=== PATIENT | female | born 1995 | race Hispanic/Latino ===

== ENCOUNTER 2022-06-15 20:41 | Emergency (ER) | payer SELFPAY ==
[2022-06-15 22:15] LABS: SARS-CoV-2 NAA Rapid Test Not Detected (NotDetected)
== END 2022-06-15 22:59 | disposition home or self-care (01) ==
LOC: CSHERS 20:41
DX: O03.9 Complete or unspecified spontaneous abortion without complication (principal); Z20.822 Contact with and (suspected) exposure to COVID-19
CPT/HCPCS: 76856

== ENCOUNTER 2022-06-17 19:02 | Emergency (ER) | payer SELFPAY | END 2022-06-17 22:38 | disposition home or self-care (01) | LOC: CSHERS 19:02 | DX: O03.9 Complete or unspecified spontaneous abortion without complication (principal) | CPT/HCPCS: 36415; 84702; 99284 ==

== ENCOUNTER 2022-12-28 21:43 | Emergency (ER) | payer SELFPAY ==
[2022-12-28 23:11] LABS: #Basophils 0.1 10x3/uL (0.0-0.2); #Eosinphils 0.2 10x3/uL (0.0-0.5); #Monocytes 0.8 10x3/uL (0.0-1.1); #Neutrophils 9.6 10x3/uL (1.5-8.4); %Basophils 0.5 % (0.0-2.0); %Eosinophils 1.4 % (0.0-6.0); %Lymphocytes 20.2 % (18.0-47.0); %Monocytes 5.8 % (0.0-10.0); %Neutrophils 71.6 % (40.0-75.0); Hematocrit 41.8 % (34.9-44.5); Hemoglobin 14.3 g/dL (12.0-15.5); Mean Corpuscular HGB CONC 34.2 g/dL (32.0-36.0); Mean Corpuscular Hemoglobin 30.2 pg (27.0-33.0); Mean Corpuscular Volume 88.2 fl (81.6-98.3); Mean Platelet Volume 9.4 fl (7.4-10.4); Platelet Count 277 10x3/uL (150-450); RBC Distribution Width 12.6 % (11.5-14.5); Red Blood Cell (RBC) Count 4.74 10x6/uL (3.90-5.03); White Blood Cell (WBC) Count 13.4 10x3/uL (3.5-10.5)
[2022-12-28 23:25] LABS: Anion Gap 11 mmol/L (10-20); BUN (Urea Nitrogen) 13 mg/dL (7.0-18.7); Calc. Creatinine Clearance 0 mL/min (70-130); Carbon Dioxide 24 mmol/L (22-29); Chloride 105 mmol/L (98-107); Potassium 3.4 mmol/L (3.5-5.1); Sodium 137 mmol/L (136-145)
[2022-12-28 23:26] LABS: ALT (SGPT) 34 U/L (8-55); AST (SGOT) 28 U/L (5-34); Albumin 4.3 g/dL (3.5-5.0); Alkaline Phosphatase 123 U/L (40-110); Bilirubin, Total 0.3 mg/dL (0.2-1.2); Estimated GFR 104; Globulin 3.4 g/dL (2.4-3.5); Glucose 114 mg/dL (70-105); Protein, Total 7.7 g/dL (6.0-8.3)
[2022-12-28] MEDS ORDERED: Acetaminophen 500 MG TAB ONE (23:39)
[2022-12-28 23:51] LABS: Bilirubin Neg (Negative); Blood, Urine 250 (Negative); Clarity Clear (Clear); Glucose, Urine (Dipstick) Normal (Negative); Ketone, Urine Negative (Negative); Leukocyte Negative (Negative); Nitrite Negative (Negative); Protein, Urine (Dipstick) 30 mg/dl (Neg-Trace); Urobilinogen Normal mg/dL (Less than 2)
[2022-12-29 00:06] LABS: CAUTI Indications for Culture Dysuria,urgency,freq
[2022-12-29 00:07] LABS: Bacteria/HPF Rare-Few HPF (None Seen); Squamous Epithelial 0-3 HPF (0-3); WBC/HPF 0-3 HPF (0-3)
[2022-12-29 00:08] LABS: Urine Culture Reflex No No
[2022-12-30 02:44] LABS: Chlamydia by PCR, Vaginal Swab Not Detected (NotDetected); GC by PCR, Vaginal Swab Not Detected (NotDetected)
== END 2022-12-29 03:10 | disposition home or self-care (01) ==
LOC: CSHERS 21:43
DX: O23.592 Infection of other part of genital tract in pregnancy, second trimester (principal); B96.89 Other specified bacterial agents as the cause of diseases classified elsewhere; Z3A.14 14 weeks gestation of pregnancy
CPT/HCPCS: 36415; 76856; 80053; 81001; 84702; 85025; 86900; 86901; 87480; 87491; 87510; 87591; 87660

== ENCOUNTER 2023-03-28 19:55 | Emergency (ER) | payer SELFPAY ==
[2023-03-28 20:47] LABS: #Eosinphils 0.1 10x3/uL (0.0-0.5); #Monocytes 0.6 10x3/uL (0.0-1.1); %Basophils 0.2 % (0.0-2.0); %Lymphocytes 16.8 % (18.0-47.0); %Neutrophils 75.5 % (40.0-75.0); Hematocrit 33.8 % (34.9-44.5); Mean Corpuscular HGB CONC 35.5 g/dL (32.0-36.0); Mean Corpuscular Hemoglobin 30.9 pg (27.0-33.0); Mean Corpuscular Volume 87.1 fl (81.6-98.3); Mean Platelet Volume 9.8 fl (7.4-10.4); Platelet Count 242 10x3/uL (150-450); RBC Distribution Width 13.6 % (11.5-14.5); Red Blood Cell (RBC) Count 3.88 10x6/uL (3.90-5.03); White Blood Cell (WBC) Count 9.2 10x3/uL (3.5-10.5)
[2023-03-28 20:55] LABS: BHCG - Serum POSITIVE (NEGATIVE); Pregs Control Background? CLEAR/WHITE (CLR/WHITE); Pregs Control Bar Appear? YES (CONTROL BAR)
[2023-03-28 20:59] LABS: Anion Gap 14 mmol/L (10-20); BUN (Urea Nitrogen) 5 mg/dL (7.0-18.7); Calc. Creatinine Clearance 0 mL/min (70-130); Calcium 9.2 mg/dL (7.8-10.44); Carbon Dioxide 21 mmol/L (22-29); Chloride 105 mmol/L (98-107); Estimated GFR 125; Glucose 98 mg/dL (70-105); Potassium 3.2 mmol/L (3.5-5.1); Sodium 137 mmol/L (136-145)
[2023-03-28 21:14] LABS: Bilirubin Neg (Negative); Blood, Urine 150 (Negative); Clarity Clear (Clear); Glucose, Urine (Dipstick) Normal (Negative); Ketone, Urine Negative (Negative); Leukocyte Negative (Negative); Nitrite Negative (Negative); Protein, Urine (Dipstick) Negative (Neg-Trace); Urobilinogen Normal mg/dL (Less than 2)
[2023-03-28 21:28] LABS: Bacteria/HPF None Seen HPF (None Seen); CAUTI Indications for Culture Pelvic or flank pain; Squamous Epithelial 0-3 HPF (0-3); WBC/HPF None Seen HPF (0-3)
[2023-03-28 21:30] LABS: Urine Culture Reflex No No
[2023-03-28] MEDS ORDERED: Acetaminophen 500 MG TAB ONE (22:38)
== END 2023-03-28 22:43 | disposition home or self-care (01) ==
LOC: CSHERS 19:55
DX: O26.852 Spotting complicating pregnancy, second trimester (principal); O10.912 Unspecified pre-existing hypertension complicating pregnancy, second trimester; Z3A.17 17 weeks gestation of pregnancy
CPT/HCPCS: 36415; 76815; 80048; 81001; 84702; 84703; 85025; 86900; 86901

== ENCOUNTER 2023-06-01 17:57 | Day surgery (SDC) | payer SELFPAY ==
[2023-06-01 18:02] VITALS: BMI 23.1
[2023-06-01] MEDS ORDERED: hydrALAZINE 20 MG/ML VIAL SLOW IVP PRN (18:02)
[2023-06-01 19:49] LABS: Bilirubin Neg (Negative); Blood, Urine 250 (Negative); Clarity Cloudy (Clear); Glucose, Urine (Dipstick) Normal (Negative); Ketone, Urine Negative (Negative); Leukocyte 25 (Negative); Nitrite Negative (Negative); Protein, Urine (Dipstick) 100 mg/dl (Neg-Trace); Urobilinogen Normal mg/dL (Less than 2)
[2023-06-01] MEDS ORDERED: Lactated Ringer's 1,000 ML IV SCH (20:00)
[2023-06-01 20:04] LABS: Bacteria/HPF 2+ HPF (None Seen); CAUTI Indications for Culture Pregnancy; RBC/HPF Greater than 50 HPF (0-3); Squamous Epithelial 0-3 HPF (0-3); WBC/HPF 0-3 HPF (0-3)
[2023-06-01 20:05] LABS: Urine Culture Reflex Yes Yes
[2023-06-01 20:34] LABS: Hematocrit 35.1 % (34.9-44.5); Hemoglobin 12.2 g/dL (12.0-15.5); Mean Corpuscular HGB CONC 34.8 g/dL (32.0-36.0); Mean Corpuscular Hemoglobin 30.8 pg (27.0-33.0); Mean Corpuscular Volume 88.6 fl (81.6-98.3); Mean Platelet Volume 10.2 fl (7.4-10.4); Platelet Count 234 10x3/uL (150-450); RBC Distribution Width 13.1 % (11.5-14.5); Red Blood Cell (RBC) Count 3.96 10x6/uL (3.90-5.03); White Blood Cell (WBC) Count 11.5 10x3/uL (3.5-10.5)
[2023-06-01 20:49] LABS: ALT (SGPT) 8 U/L (8-55); AST (SGOT) 14 U/L (5-34); Alkaline Phosphatase 89 U/L (40-110); Anion Gap 11 mmol/L (10-20); BUN (Urea Nitrogen) 8 mg/dL (7.0-18.7); Bilirubin, Total 0.3 mg/dL (0.2-1.2); Calc. Creatinine Clearance 145 mL/min (70-130); Calcium 9.1 mg/dL (7.8-10.44); Carbon Dioxide 23 mmol/L (22-29); Chloride 107 mmol/L (98-107); Estimated GFR 126; Globulin 3.1 g/dL (2.4-3.5); Glucose 83 mg/dL (70-105); Potassium 3.6 mmol/L (3.5-5.1); Protein, Total 7.1 g/dL (6.0-8.3); Sodium 137 mmol/L (136-145)
[2023-06-01] MEDS ORDERED: cefTRIAXone\\ROCEPHIN 1 GM in Sodium Chloride 0.9% 100 ML IVPB SCH (21:00)
[2023-06-01] MEDS ORDERED: metroNIDAZOLE 500 MG TAB PO SCH (21:30)
== END 2023-06-01 21:55 | disposition home or self-care (01) ==
LOC: CSHLD/OP 17:57
PROVIDERS: ATTEND Family Medicine
DX: O23.42 Unspecified infection of urinary tract in pregnancy, second trimester (principal); O23.592 Infection of other part of genital tract in pregnancy, second trimester; B96.89 Other specified bacterial agents as the cause of diseases classified elsewhere; O44.02 Complete placenta previa NOS or without hemorrhage, second trimester; Z3A.27 27 weeks gestation of pregnancy; Z79.899 Other long term (current) drug therapy
CPT/HCPCS: 76815; 80053; 81001; 85027; 87086; 87480; 87510; 87660; 99285; J0696; J3490

== ENCOUNTER 2023-08-27 14:58 | Inpatient (IN) | payer MEDICAID, OTHER ==
[2023-08-27 16:29] VITALS: BMI 28.0
[2023-08-27] MEDS ORDERED: Tranexamic Acid 1,000 MG/10 ML VIAL IVP PRN (16:41)
[2023-08-27] MEDS ORDERED: Lorazepam 2 MG/ML VIAL SLOW IVP PRN (16:41)
[2023-08-27] MEDS ORDERED: Promethazine HCl 25 MG/ML VIAL IM PRN (16:41)
[2023-08-27] MEDS ORDERED: HYDROcodone/Acetaminophen 5/325 mg Tablet PO PRN (16:41)
[2023-08-27] MEDS ORDERED: Carboprost 250 MCG/ML AMP IM PRN (16:41)
[2023-08-27] MEDS ORDERED: Ondansetron PF 4 MG/2 ML Vial IVP PRN (16:41)
[2023-08-27] MEDS ORDERED: Diphenoxylate HCl/Atropine Tablet PO PRN (16:41)
[2023-08-27] MEDS ORDERED: Acetaminophen 500 MG TAB PO PRN (16:41)
[2023-08-27] MEDS ORDERED: Ibuprofen 800 MG TAB PO PRN (16:41)
[2023-08-27] MEDS ORDERED: Calcium Gluc 4.6 MEQ/10 ML (100 MG/ML) SLOW IVP PRN (16:41)
[2023-08-27] MEDS ORDERED: Labetalol HCl 100 MG/20 ML VIAL SLOW IVP PRN ×2 (16:41)
[2023-08-27] MEDS ORDERED: hydrALAZINE 20 MG/ML VIAL SLOW IVP PRN ×3 (16:41)
[2023-08-27] MEDS ORDERED: Misoprostol 200 MCG TAB PR PRN (16:41)
[2023-08-27] MEDS ORDERED: Oxytocin 30 units/NS 500 ML 500 ML IV SCH (16:45)
[2023-08-27 17:15] LABS: Hematocrit 37.4 % (34.9-44.5); Hemoglobin 12.8 g/dL (12.0-15.5); Mean Corpuscular HGB CONC 34.2 g/dL (32.0-36.0); Mean Corpuscular Hemoglobin 29.6 pg (27.0-33.0); Mean Corpuscular Volume 86.4 fl (81.6-98.3); Mean Platelet Volume 11.7 fl (7.4-10.4); Platelet Count 203 10x3/uL (150-450); RBC Distribution Width 13.6 % (11.5-14.5); Red Blood Cell (RBC) Count 4.33 10x6/uL (3.90-5.03); White Blood Cell (WBC) Count 9.1 10x3/uL (3.5-10.5)
[2023-08-27 17:55] LABS: Syphilis Antibody Nonreactive (Nonreactive); Syphilis Antibody Index 0.07 S/CO (<1.00 Non-Reactive)
[2023-08-27 17:56] LABS: HBsAg Index 0.25 S/CO (0-0.99); Hep B Surf Ag - L&D Non-Reactive S/CO (NonReactive)
[2023-08-27] MEDS: Lactated Ringer's 1,000 ML IV SCH (18:04)
[2023-08-27] MEDS: Misoprostol 100 MCG TAB PO SCH (18:04)
[2023-08-27 19:45] LABS: Creatinine, Urine 29.59 mg/dL (47-110); Protein, Urine Random Quant Less than 10 mg/dL (1-14)
[2023-08-28] MEDS: Oxytocin 30 units/NS 500 ML 500 ML IV SCH ×2 (09:44→14:07)
[2023-08-28] MEDS: fentaNYL 50 mcg/mL 1 mL Vial SLOW IVP PRN (09:44)
[2023-08-28] MEDS: Lidocaine 1% (PF) 30 ML VIAL SC PRN (14:00)
[2023-08-28] MEDS ORDERED: Lanolin Ointment 7 GM TUBE TOP PRN (15:49)
[2023-08-28] MEDS ORDERED: cloNIDine 0.1 MG TAB PO PRN (15:49)
[2023-08-28] MEDS ORDERED: Bisacodyl 10 MG SUPP PR PRN (15:49)
[2023-08-28] MEDS ORDERED: hydrALAZINE 20 MG/ML VIAL SLOW IVP PRN (15:49)
[2023-08-28] MEDS ORDERED: Oxytocin 30 units/NS 500 ML 500 ML IV SCH (15:49)
[2023-08-28] MEDS ORDERED: HYDROcodone/Acetaminophen 5/325 mg Tablet PO PRN (15:49)
[2023-08-28] MEDS ORDERED: Ondansetron PF 4 MG/2 ML Vial IVP PRN (15:49)
[2023-08-28] MEDS ORDERED: diphenhydrAMINE 25 MG CAP PO PRN (15:49)
[2023-08-28] MEDS ORDERED: Milk Of Magnesia 30 ML UDCUP PO PRN (15:49)
[2023-08-28] MEDS ORDERED: Preparation H Ointment 28 GM TUBE PR PRN (15:49)
[2023-08-28] MEDS ORDERED: Benzocaine-Menthol 82.5 ML CAN TOP PRN (15:49)
[2023-08-28] MEDS: Ferrous Sulfate 325 MG TAB PO SCH (19:03)
[2023-08-28] MEDS: Lidocaine 1% (PF) 30 ML VIAL ONE (19:03)
[2023-08-28] MEDS: Docusate 100 MG CAP PO SCH (21:25)
[2023-08-28] MEDS: Ibuprofen 800 MG TAB PO SCH (21:25)
[2023-08-29] MEDS: Prenatal Vitamin 1 TAB PO SCH (15:09)
[2023-08-30] MEDS: Boostrix 0.5 ML (Tdap) VIAL (>/=7 yrs of age) IM ONE (07:39)
[2023-08-30 09:45] VITALS: BP 114/75; TEMP 98.4
== END 2023-08-30 14:00 | disposition home or self-care (01) | DRG 807 ==
LOC: CSHLD 14:58 → CSHPP 08-28 16:30
PROVIDERS: ADMIT Family Medicine; ATTEND Family Medicine
PROC: 10E0XZZ Delivery of Products of Conception, External Approach (ICD-10-PCS; principal; 2023-08-28)
PROC: 0KQM0ZZ Repair Perineum Muscle, Open Approach (ICD-10-PCS; 2023-08-28)
PROC: 10907ZC Drainage of Amniotic Fluid, Therapeutic from Products of Conception, Via Natural or Artificial Opening (ICD-10-PCS; 2023-08-28)
PROC: 3E0P7VZ Introduction of Hormone into Female Reproductive, Via Natural or Artificial Opening (ICD-10-PCS; 2023-08-28)
PROC: 0UQMXZZ Repair Vulva, External Approach (ICD-10-PCS; 2023-08-28)
DX: O13.4 Gestational [pregnancy-induced] hypertension without significant proteinuria, complicating childbirth (principal); Z37.0 Single live birth; Z3A.40 40 weeks gestation of pregnancy; O69.81X0 Labor and delivery complicated by cord around neck, without compression, not applicable or unspecified; O70.1 Second degree perineal laceration during delivery
CPT/HCPCS: 82570; 84156; 85027; 86780; 86850; 86900; 86901; 87340; J2001; J2590; J3010; J7120

== ENCOUNTER 2025-04-11 18:42 | Emergency (ER) | payer MEDICAID, SELFPAY ==
[2025-04-11 19:58] LABS: #Basophils 0.05 10x3/uL (0.0-0.2); #Eosinophils 0.14 10x3/uL (0.0-0.5); #Monocytes 0.72 10x3/uL (0.0-1.1); #Neutrophils 7.67 10x3/uL (1.5-8.4); %Basophils 0.5 % (0.0-2.0); %Eosinophils 1.3 % (0.0-6.0); %Lymphocytes 19.9 % (18.0-47.0); %Monocytes 6.7 % (0.0-10.0); %Neutrophils 71.2 % (40.0-75.0); Hematocrit 41.2 % (34.9-44.5); Hemoglobin 14.0 g/dL (12.0-15.5); Mean Corpuscular Hemoglobin 30.0 pg (27.0-33.0); Mean Corpuscular Volume 88.2 fL (81.6-98.3); Platelet Count 279 10x3/uL (150-450); Red Blood Cell (RBC) Count 4.67 10x6/uL (3.90-5.03); White Blood Cell (WBC) Count 10.76 10x3/uL (3.5-10.5)
[2025-04-11 20:06] LABS: BHCG - Serum Negative (NEGATIVE); Pregs Control Background? CLEAR/WHITE (CLR/WHITE); Pregs Control Bar Appear? YES (CONTROL BAR)
[2025-04-11 20:13] LABS: ALT (SGPT) 20 U/L (Less than 34); AST (SGOT) 26 U/L (11-34); Albumin 4.4 g/dL (3.1-4.5); Alkaline Phosphatase 124 U/L (40-110); Anion Gap 13 mmol/L (10-20); BUN (Urea Nitrogen) 11 mg/dL (7.0-18.7); Bilirubin, Total 0.3 mg/dL (0.3-1.2); Calc. Creatinine Clearance 0 mL/min (70-130); Calcium 9.1 mg/dL (7.8-10.44); Carbon Dioxide 26 mmol/L (22-29); Chloride 104 mmol/L (98-107); Globulin 3.4 g/dL (2.4-3.5); Glucose 95 mg/dL (70-105); Potassium 3.6 mmol/L (3.5-5.1); Sodium 139 mmol/L (136-145)
== END 2025-04-11 21:14 | disposition home or self-care (01) ==
LOC: CSHERS 18:42
DX: G51.0 Bell's palsy (principal); I10 Essential (primary) hypertension; R29.704 NIHSS score 4; Z75.8 Other problems related to medical facilities and other health care
CPT/HCPCS: 70450; 80053; 84703; 85025; 87081; 87428; 87430; 93005